=== PATIENT | male | born 1980 | race Caucasian/White ===

== ENCOUNTER 2017-02-09 07:50 | Emergency (ER) | payer SELFPAY ==
[~2017-02-09] VITALS: Ht 170.2 cm; Wt 100.0 kg
[~2017-02-09 07:50] MED LIST: AMOXICILLIN500 MG PO; BACTRIM DS1 TAB PO; CELEXA10 MG PO; KEFLEX500 M1 PO; LISINOPRIL20 MG PO; LORTAB 10-325 M1 TAB PO; ZANTAC 150 PO
[2017-02-09] MEDS ORDERED: ZOFRAN ODT4 MG PO (08:19)
[2017-02-09] MEDS ORDERED: FIORICET PO (08:19)
[2017-02-09 08:32] VITALS: BP 130/88
== END 2017-02-09 08:47 | disposition home or self-care (01) | DRG 103 ==
LOC: ED 07:50
DX: G43.909 Migraine, unspecified, not intractable, without status migrainosus (principal)

== ENCOUNTER 2017-03-09 17:39 | Emergency (ER) | payer OTHER ==
[~2017-03-09] VITALS: Ht 170.2 cm; Wt 111.8 kg
[~2017-03-09 17:39] MED LIST changes: +FIORICET PO; +ZOFRAN ODT4 MG PO
[2017-03-09] MEDS ORDERED: FIORICET PO (19:25)
[2017-03-09 19:28] VITALS: BP 117/78
== END 2017-03-09 19:36 | disposition home or self-care (01) | DRG 103 ==
LOC: ED 17:39
DX: G43.909 Migraine, unspecified, not intractable, without status migrainosus (principal); H53.143 Visual discomfort, bilateral; R11.0 Nausea